=== PATIENT | female | born 1995 | race Caucasian/White ===

== ENCOUNTER → 2017-01-25 | Outpatient (CLI) | payer OTHER ==
[2017-01-25 10:19] LABS: AUTOMATED NEUTROPHIL # 3.4 TH/MM3 (1.8-7.7); BASOPHIL % 0.4 % (0.0-2.0); EOSINOPHIL # 0.4 TH/MM3 (0-0.4); HEMATOCRIT 39.2 % (35.0-46.0); HEMO FLAGS DIFF FINAL; LYMPH % 30.9 % (9.0-44.0); LYMPHOCYTE # 1.9 TH/MM3 (1.0-4.8); MEAN CELL VOLUME 87.2 FL (80.0-100.0); MEAN CORPUSCULAR HEMOGLOBIN 30.1 PG (27.0-34.0); MEAN CORPUSCULAR HGB CONC 34.5 % (32.0-36.0); MONO % 8.8 % (0.0-8.0); NEUT % 53.9 % (16.0-70.0); PLATELET COUNT 281 TH/MM3 (150-450); RED BLOOD COUNT 4.49 MIL/MM3 (4.00-5.30); RED CELL DISTRIBUTION WIDTH 12.2 % (11.6-17.2); WHITE BLOOD COUNT 6.2 TH/MM3 (4.0-11.0)
[2017-01-25 13:15] LABS: ANION GAP 11 MEQ/L (5-15); AST (GOT) 107 U/L (16-38); BICARBONATE 25.5 MEQ/L (21.0-32.0); BLOOD UREA NITROGEN 7 MG/DL (7-18); CHLORIDE 102 MEQ/L (98-107); GLOMERULAR FILTRATION RATE 112 ML/MIN (>89); GLUCOSE,FASTING 112 MG/DL (74-99); POTASSIUM 4.1 MEQ/L (3.5-5.1); SODIUM (NA) 138 MEQ/L (136-145)
[2017-01-25 13:23] LABS: ALKALINE PHOSPHATASE 89 U/L (45-117); ALT (GPT) 159 U/L (9-42); FOLLICLE STIMULATING HORMONE 7.1 mIU/mL; FREE T4 0.97 NG/DL (0.76-1.46); HDL CHOLESTEROL 35.6 MG/DL (40.0-60.0); LDL CHOLESTEROL 170 MG/DL (0-99); LUTEINIZING HORMONE 7.2 mIU/mL; TOTAL BILIRUBIN ADULT 0.3 MG/DL (0.2-1.0)
[2017-01-25 16:48] LABS: HEMOGLOBIN A1b 1.1 %; HEMOGLOBIN Ao 83.7 %; HEMOGLOBIN F 1.1 %; HEMOGLOBIN LA1C 2.1 %; HEMOGLOBIN P3 3.7 %
[2017-01-27 21:57] LABS: BIOAVAILABLE TESTOSTERONE 2.8 ng/dL (())
== END ==
LOC: OLAB 09:51
PROVIDERS: ATTEND Pediatrics
DX: E28.2 Polycystic ovarian syndrome (principal); Z68.31 Body mass index [BMI] 31.0-31.9, adult
CPT/HCPCS: 80053; 80061; 82248; 82670; 82947; 83001; 83002; 83036; 83525; 84402; 84403; 84410; 84439; 84443; 85025

== ENCOUNTER → 2017-02-21 | Outpatient (CLI) | payer OTHER | LOC: TMNT 13:30 | PROVIDERS: ATTEND Internal Medicine Interventional Cardiology | DX: E28.2 Polycystic ovarian syndrome (principal); Z68.31 Body mass index [BMI] 31.0-31.9, adult | CPT/HCPCS: 97802 ==

== ENCOUNTER → 2017-02-23 | Outpatient (CLI) | payer OTHER ==
[2017-02-23 12:47] LABS: APTT (PATIENT) 26.1 SEC (24.3-30.1); PROTHROMBIN TIME - PATIENT 10.7 SEC (9.8-11.6)
[2017-02-23 12:57] LABS: ANION GAP 7 MEQ/L (5-15); AST (GOT) 96 U/L (16-38); BICARBONATE 26.9 MEQ/L (21.0-32.0); BLOOD UREA NITROGEN 10 MG/DL (7-18); CHLORIDE 104 MEQ/L (98-107); GAMMA GT 89 U/L (5-55); GLOMERULAR FILTRATION RATE 107 ML/MIN (>89); GLUCOSE,FASTING 121 MG/DL (74-99); POTASSIUM 4.2 MEQ/L (3.5-5.1); SODIUM (NA) 138 MEQ/L (136-145)
[2017-02-23 12:58] LABS: ALT (GPT) 163 U/L (9-42)
[2017-02-23 13:00] LABS: ALKALINE PHOSPHATASE 80 U/L (45-117); TOTAL BILIRUBIN ADULT 0.4 MG/DL (0.2-1.0)
== END ==
LOC: OLAB 10:19
PROVIDERS: ATTEND Pediatrics
DX: R74.0 Nonspecific elevation of levels of transaminase and lactic acid dehydrogenase [LDH] (principal)
CPT/HCPCS: 80053; 82977; 85610; 85730

== ENCOUNTER → 2017-03-30 | Outpatient (CLI) | payer OTHER ==
[2017-03-30 12:36] LABS: TRANSFERRIN IRON PROFILE 359 MG/DL (200-360)
[2017-03-30 12:39] LABS: FERRITIN 69 NG/ML (8-252)
[2017-03-31 11:53] LABS: ANA SCREEN NEG (NEG)
[2017-04-01 23:53] LABS: (LFP)ALT 71 U/L (6-29); A2 MACROGLOBULIN 324 mg/dL (106-279); FIBROSIS STAGE F0-F1; GGT(LFP) 81 U/L (3-40); HAPTOGLOBIN (LFP) 129 mg/dL (43-212); NECROINFLAMM ACT GRADE A1-A2; REFERENCE ID 1657526; TOTAL BILIRUBIN (LFP) 0.4 mg/dL (0.2-1.2)
[2017-04-02 03:50] LABS: IGA SERUM 254 mg/dL (81-463); MITOCHONDRIAL ABS LESS THAN 20.0 U (<=20.0)
[2017-04-03 03:52] LABS: ENDOMYSIAL AB TITER ND (<1:5); TISSUE TRANSGLUTAMINASE AB LESS THAN 1 U/mL (0-4)
== END ==
LOC: CLAB 10:41
PROVIDERS: ATTEND Internal Medicine Gastroenterology
DX: R74.8 Abnormal levels of other serum enzymes (principal)
CPT/HCPCS: 36415; 80074; 82172; 82247; 82390; 82728; 82784; 82977; 83010; 83516; 83520; 83540; 83550; 83883; 84460; 86038; 86255

== ENCOUNTER → 2017-04-11 | Outpatient (CLI) | payer OTHER | LOC: OLAB 09:31 | PROVIDERS: ATTEND Pediatrics | DX: Z02.0 Encounter for examination for admission to educational institution (principal) | CPT/HCPCS: 86317; 86787 ==

== ENCOUNTER → 2017-05-26 | Outpatient (CLI) | payer OTHER ==
[2017-05-26 13:17] LABS: ALT (GPT) 91 U/L (9-42); ANION GAP 6 MEQ/L (5-15); AST (GOT) 55 U/L (16-38); BICARBONATE 27.7 MEQ/L (21.0-32.0); BLOOD UREA NITROGEN 10 MG/DL (7-18); CHLORIDE 104 MEQ/L (98-107); GLOMERULAR FILTRATION RATE 110 ML/MIN (>89); GLUCOSE,FASTING 122 MG/DL (74-99); POTASSIUM 4.2 MEQ/L (3.5-5.1); SODIUM (NA) 138 MEQ/L (136-145)
[2017-05-26 13:18] LABS: ALKALINE PHOSPHATASE 90 U/L (45-117); TOTAL BILIRUBIN ADULT 0.4 MG/DL (0.2-1.0)
[2017-05-26 14:00] LABS: HEMOGLOBIN A1a 1.1 %; HEMOGLOBIN Ao 83.7 %; HEMOGLOBIN F 1.2 %; HEMOGLOBIN LA1C 2.1 %; HEMOGLOBIN P3 3.8 %
== END ==
LOC: OLAB 10:37
DX: E11.65 Type 2 diabetes mellitus with hyperglycemia (principal)
CPT/HCPCS: 80053; 83036

== ENCOUNTER → 2017-08-08 | Outpatient (CLI) | payer OTHER ==
[2017-08-08 12:51] LABS: ALBUMIN 3.8 GM/DL (3.4-5.0); DIRECT BILIRUBIN ADULT 0.1 MG/DL (0.0-0.2)
[2017-08-08 12:55] LABS: INDIRECT BILIRUBIN 0.4 MG/DL (0.0-0.8); TOTAL BILIRUBIN ADULT 0.5 MG/DL (0.2-1.0); TOTAL PROTEIN 8.4 GM/DL (6.4-8.2)
== END ==
LOC: OLAB 10:54
PROVIDERS: ATTEND Pediatrics
DX: R74.8 Abnormal levels of other serum enzymes (principal); K76.0 Fatty (change of) liver, not elsewhere classified
CPT/HCPCS: 36415; 80076; 86317

== ENCOUNTER → 2017-09-01 | Outpatient (CLI) | payer OTHER ==
[2017-09-02 23:51] LABS: GLYCOMARK 10.4 mcg/mL (7.5-28.4)
[2017-09-04 19:52] LABS: C-PEPTIDE 3.12 ng/mL (0.80-3.85)
== END ==
LOC: OLAB 10:39
PROVIDERS: ATTEND Internal Medicine Endocrinology, Diabetes & Metabolism
DX: E11.65 Type 2 diabetes mellitus with hyperglycemia (principal)
CPT/HCPCS: 36415; 82947; 84378; 84681

== ENCOUNTER → 2017-11-14 | Outpatient (CLI) | payer OTHER ==
[2017-11-14 11:13] LABS: ALBUMIN 3.5 GM/DL (3.4-5.0)
[2017-11-14 11:15] LABS: DIRECT BILIRUBIN ADULT 0.1 MG/DL (0.0-0.2); INDIRECT BILIRUBIN 0.2 MG/DL (0.0-0.8); TOTAL BILIRUBIN ADULT 0.3 MG/DL (0.2-1.0); TOTAL PROTEIN 7.6 GM/DL (6.4-8.2)
== END ==
LOC: OLAB 07:54
PROVIDERS: ATTEND Internal Medicine Gastroenterology
DX: R74.8 Abnormal levels of other serum enzymes (principal); K76.0 Fatty (change of) liver, not elsewhere classified
CPT/HCPCS: 36415; 80076; 82172

== ENCOUNTER → 2017-12-06 | Outpatient (CLI) | payer OTHER ==
[2017-12-09 03:49] LABS: GLYCOMARK 8.6 mcg/mL (7.5-28.4)
[2017-12-11 23:51] LABS: C-PEPTIDE 4.23 ng/mL (0.80-3.85)
== END ==
LOC: OLAB 09:14
PROVIDERS: ATTEND Internal Medicine Endocrinology, Diabetes & Metabolism
DX: E11.65 Type 2 diabetes mellitus with hyperglycemia (principal)
CPT/HCPCS: 36415; 82947; 84378; 84681